=== PATIENT | male | born 1985 | race Two or more races ===

== ENCOUNTER 2016-07-10 12:24 | Emergency (ER) | payer MEDICAID ==
[~2016-07-10] VITALS: Ht 160 cm; Wt 88.5 kg
[2016-07-10 12:36] VITALS: BP 135/69
[2016-07-10] MEDS ORDERED: IBUPROFEN 400 MG TABLET PO ONE (13:00)
[2016-07-10] MEDS ORDERED: PENICILLIN G BENZATHINE 2.4 MMU/4 ML ML IM ONE ×2 (13:00→13:10)
[2016-07-10] MEDS ORDERED: DEXAMETHASONE SOD PHOSPHATE 4 MG/ML VIAL IM ONE (13:00)
[2016-07-10] MEDS ORDERED: ACETAMINOPHEN ES 500 MG TABLET PO ONE (13:00)
[2016-07-10] MEDS ORDERED: ACETAMINOPHEN ES 500 MG TABLET ONE (13:09)
[2016-07-10] MEDS ORDERED: IBUPROFEN 400 MG TABLET ONE (13:09)
[2016-07-10] MEDS ORDERED: DEXAMETHASONE SOD PHOSPHATE 4 MG/ML VIAL ONE (13:09)
[2016-07-10] MEDS ORDERED: DEXAMETHASONE SOD PHOSPHATE 10 MG/ML VIAL ONE (13:12)
== END 2016-07-10 13:27 | disposition home or self-care (01) ==
LOC: ER 12:30
DX: J02.0 Streptococcal pharyngitis (principal); M10.9 Gout, unspecified
CPT/HCPCS: 96372 ×2; 99284; A4606; J0558; J1100; Z7610

== ENCOUNTER 2016-12-01 14:40 | Emergency (ER) | payer MEDICAID ==
[~2016-12-01] VITALS: Ht 152.4 cm; Wt 88.5 kg
--- NOTE | 2016-12-01 14:46 | NUR ---
pt ambulatory to er bed 10. c/o burning like midsternal chest pain that started at around 11am today. pt states had a same symptom 2 months ago but this one is worst. no hx of heart issues. gowned and placed on monitor. 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
--- NOTE | 2016-12-01 15:04 | NUR ---
dr sosa at bedside for eval.
[2016-12-01] MEDS ORDERED: ASPIRIN 325 MG TABLET ONE (15:16)
--- NOTE | 2016-12-01 15:16 | NUR ---
iv line started blood drawn and sent to lab.
[2016-12-01 15:25] LABS: BASOPHILS # (AUTO) 0.3 /CMM (0.0-0.2); BASOPHILS % (AUTO) 1.7 % (0.0-2.0); EOSINOPHILS % (AUTO) 0.3 % (0.0-6.0); HEMATOCRIT 42 % (39-51); HEMOGLOBIN 14.5 g/dL (13.5-17.5); LYMPHOCYTES # (AUTO) 2.5 /CMM (0.8-4.8); LYMPHOCYTES % (AUTO) 16.4 % (20.0-44.0); MEAN CORPUSCULAR HEMOGLOBIN 31 PG (26.0-33.0); MEAN CORPUSCULAR HGB CONC 35 g/dl (31.0-36.0); MEAN CORPUSCULAR VOLUME 90 fL (80-96); MONOCYTES % (AUTO) 6.7 % (2.0-12.0); NEUTROPHILS # (AUTO) 11.3 /CMM (1.8-8.9); NEUTROPHILS % (AUTO) 74.9 % (43.0-81.0); PLATELET COUNT (AUTO) 202 /CMM (150-450); RDW COEFFICIENT OF VARIATION 12.2 (11.5-15.0); RED BLOOD CELL COUNT(AUTO) 4.69 MIL/uL (4.5-6.0); WHITE BLOOD COUNT (AUTO) 15.1 K/uL (4.3-11.0)
[2016-12-01] MEDS ORDERED: ASPIRIN 325 MG TABLET PO ONE (15:30)
[2016-12-01 15:34] LABS: CALCIUM, SERUM 9.1 mg/dL (8.5-10.1); CARBON DIOXIDE 27 mmol/L (21-32); CHLORIDE 103 mmol/L (98-107); CREATININE 1.1 mg/dL (0.6-1.3); GLUCOSE 114 mg/dL (74-106); POTASSIUM 3.7 mmol/L (3.5-5.1); SODIUM SERUM 138 mmol/L (136-145); UREA NITROGEN, BLOOD 15 mg/dL (7-18)
[2016-12-01 15:38] LABS: INR 0.96 (0.87-1.13)
[2016-12-01 15:43] LABS: TROPONIN I < 0.017 ng/mL (0.00-0.056)
[2016-12-01] MEDS ORDERED: IV NS 0.9% 250 ML IV ONE (16:35)
[2016-12-01] MEDS ORDERED: IOHEXOL-350 100 ML VIAL IV ONE (16:36)
--- NOTE | 2016-12-01 18:10 | NUR ---
crime lab analyst at bedside for repeat troponin draw.
[2016-12-01 19:05] VITALS: BP 115/76
--- NOTE | 2016-12-01 19:05 | NUR ---
Patient discharged to home in stable condition. Written and verbal after care instructions given. Patient verbalizes understanding of instruction.IV removed. Catheter intact and site benign. Pressure and 4x4 applied to site. No bleeding noted.
== END 2016-12-01 19:06 | disposition home or self-care (01) ==
LOC: ER 14:41
DX: R07.89 Other chest pain (principal); M10.9 Gout, unspecified; Z79.82 Long term (current) use of aspirin
CPT/HCPCS: 36415; 71010-TC; 80048-TC; 84484-TC; 85025-TC; 85378-TC; 85730-TC; A4606; J7050; Q9967; Z7610

== ENCOUNTER 2024-09-30 20:58 | Emergency (ER) | payer MEDICAID, OTHER ==
[~2024-09-30] VITALS: Ht 165.1 cm; Wt 85.3 kg
[2024-09-30] MEDS ORDERED: IOHEXOL-300 100 ML VIAL IV ONE (22:36)
[2024-09-30] MEDS ORDERED: IV NS 0.9% 250 ML IV ONE (22:37)
[2024-09-30] MEDS ORDERED: CT SWABBABLE VALVE TRANS SET 1 EA INFUS.SET MC ONE (22:37)
[2024-09-30] MEDS ORDERED: ONDANSETRON HCL/PF 4 MG/2 ML VIAL ONE (23:04)
[2024-09-30] MEDS: IV NS 0.9% 1,000 ML IV ONE (23:04)
[2024-09-30] MEDS ORDERED: KETOROLAC TROMETHAMINE INJ 30 MG/ML VIAL ONE (23:04)
[2024-09-30] MEDS: ONDANSETRON HCL/PF - ER 4 MG/2 ML VIAL IV ONE (23:05)
[2024-09-30] MEDS: KETOROLAC TROMETHAMINE INJ 30 MG/ML VIAL IV ONE (23:05)
[2024-09-30 23:06] LABS: BASOPHILS % (AUTO) 0.3 % (0.0-2.0); EOSINOPHILS % (AUTO) 0.2 % (0.0-6.0); HEMATOCRIT 46 % (39-51); HEMOGLOBIN 15.8 g/dL (13.5-17.5); LYMPHOCYTES # (AUTO) 1.5 K/uL (0.8-4.8); LYMPHOCYTES % (AUTO) 10.2 % (20.0-44.0); MEAN CORPUSCULAR HEMOGLOBIN 30 PG (26.0-33.0); MEAN CORPUSCULAR HGB CONC 34 g/dl (31.0-36.0); MEAN CORPUSCULAR VOLUME 89 fL (80-96); MONOCYTES # (AUTO) 0.5 K/uL (0.1-1.30); MONOCYTES % (AUTO) 3.5 % (2.0-12.0); NEUTROPHILS # (AUTO) 12.8 K/uL (1.8-8.9); NEUTROPHILS % (AUTO) 85.8 % (43.0-81.0); PLATELET COUNT (AUTO) 207 K/uL (150-450); RED BLOOD CELL COUNT(AUTO) 5.21 MIL/uL (4.5-6.0); RED CELL DISTRIBUTION WIDTH 12.7 % (11.5-15.0); WHITE BLOOD COUNT (AUTO) 14.9 K/uL (4.3-11.0)
[2024-09-30 23:12] LABS: CALCIUM, SERUM 9.6 mg/dL (8.5-10.1); CARBON DIOXIDE 28 mmol/L (21-32); CHLORIDE 99 mmol/L (98-107); CREATININE 1.1 mg/dL (0.6-1.3); GLUCOSE 354 mg/dL (74-106); POTASSIUM 4.3 mmol/L (3.5-5.1); SODIUM SERUM 134 mmol/L (136-145); UREA NITROGEN, BLOOD 18 mg/dL (7-18)
[2024-09-30 23:20] LABS: ALANINE AMINOTRANSFERASE 14 U/L (12-78); ALBUMIN 4.2 g/dL (3.4-5.0); ALKALINE PHOSPHATASE 100 U/L (46-116); ASPARTATE AMINOTRANSFERASE 18 U/L (15-37); BILIRUBIN,TOTAL 0.8 mg/dL (0.2-1.0); LIPASE 26 U/L (16-77); TOTAL PROTEIN, SERUM 8.4 g/dL (6.4-8.2)
[2024-09-30 23:23] LABS: ALCOHOL, BLOOD < 3 mg/dL (0-10)
[2024-09-30 23:46] LABS: AMPHETAMINE, URINE NEGATIVE (NEGATIVE); BARBITURATE, URINE NEGATIVE (NEGATIVE); BENZODIAZEPINE, URINE NEGATIVE (NEGATIVE); CANNABINOID, URINE NEGATIVE (NEGATIVE); COCCAINE, URINE NEGATIVE (NEGATIVE); OPIATE, URINE NEGATIVE (NEGATIVE); PHENCYCLIDINE SCREEN,URINE NEGATIVE (NEGATIVE)
[2024-09-30 23:47] LABS: APPEARANCE,URINE CLEAR (CLEAR); BILIRUBIN,URINE NEGATIVE (NEGATIVE); BLOOD, URINE TRACE-INTA Ery/uL (NEGATIVE); COLOR,URINE YELLOW (YELLOW); KETONES,URINE 1+ mg/dL (NEGATIVE); LEUKOCYTE ESTERASE ,URINE NEGATIVE (NEGATIVE); NITRITE, URINE NEGATIVE (NEGATIVE); PROTEIN,URINE 3+ mg/dl (NEGATIVE); UGLUCOSE 3+ mg/dL (NEGATIVE); UROBILINOGEN,URINE 0.2 EU/dL (0.2)
[2024-10-01 00:21] LABS: ADD URINE CULTURE NO; BACTERIA,URINE Rare /HPF (None Seen); SQUAMOUS EPITHELIAL CELL,UR Moderate /HPF (None Seen); WBC,URINE 0-2 /HPF (0-3)
[2024-10-01 00:22] LABS: COARSE GRANULAR CASTS,URINE Few /LPF (None Seen)
[2024-10-01] MEDS ORDERED: CEFTRIAXONE 1GM BAG (ER ONLY) 50 ML IV ONE (01:42)
[2024-10-01] MEDS ORDERED: INSULIN REGULAR, HUMAN 100 UNIT/ML 10 ML VIAL ONE (01:43)
[2024-10-01] MEDS: INSULIN REGULAR, HUMAN 100 UNIT/ML 10 ML VIAL IV ONE (01:54)
[2024-10-01] MEDS: CEFTRIAXONE 1 G in IV D5W 50 ML IV ONE (02:00)
[2024-10-01] MEDS ORDERED: METF-440 PO (10:21)
[2024-10-01] MEDS ORDERED: AMOX-430 PO (10:21)
[2024-10-01 10:25] VITALS: BP 110/66; TEMP 98.2; O2SAT 100
== END 2024-10-01 10:28 | disposition left against medical advice (07) ==
LOC: ER 21:02
DX: K52.9 Noninfective gastroenteritis and colitis, unspecified (principal); R73.9 Hyperglycemia, unspecified; M10.9 Gout, unspecified
CPT/HCPCS: 99285; 96361; 96375 ×2; 74177; 85025; 83690; 81001; 36415 ×2; 80053; 80320; 80307; 96365; 87040; 83036; J1885; J2405 ×2; J7030; J7050; Q9967; J1815; J0696 ×2; J7060; G0480